=== PATIENT | female | born 1970 | race American Indian/Alaskan Native ===

== ENCOUNTER 2022-04-27 02:15 | Emergency (ER) | payer MEDICARE ==
[2022-04-27] MEDS ORDERED: traMADol 50 MG TAB PO ONE (12:13)
[2022-04-27] MEDS ORDERED: cephALEXin 500 MG CAP PO ONE (12:13)
--- NOTE | 2022-04-27 12:26 | Emergency Department Report ---
ED General Adult HPI - General Chief complaint: Extremity Injury, Lower Stated complaint: LEG INFECTION Time Seen by Provider: 04/27/22 12:13 Source: patient Mode of arrival: Wheelchair Limitations: No Limitations - History of Present Illness Initial comments: Is a 51-year-old female with history of right BKA who presents for pain and sore to right stump. Patient states she wore a stump without compression sleeve causing irritation and small sore. There is no drainage no bleeding no fever or chills. There is mild erythema to 1 x 2 cm site. Patient has follow-up appointment with [facility] tomorrow. States she wanted to make sure to start antibiotics today. Requesting pain medication. Patient rates pain at 4/10. Pain is exacerbated by ambulating and prosthetic irritating her right stump. Pain is relieved by nothing tried. He denies other symptoms. No rigors, no fevers, no chills. - Related Data Previous Rx's Medication Instructions Recorded Last Taken Type cephALEXin [Keflex] 500 mg PO Q8HR 7 Days #21 cap 04/27/22 Unknown Rx traMADoL [Ultram] 50 mg PO Q6HR PRN #12 tablet 04/27/22 Unknown Rx Allergies Allergy/AdvReac Type Severity Reaction Status Date / Time bee venom protein (honey bee) Allergy Itching Verified 04/27/22 02:37 ED Review of Systems ROS: Stated complaint: LEG INFECTION Other details as noted in HPI Constitutional: denies: chills, fever Eyes: denies: eye pain, eye discharge, vision change ENT: denies: ear pain, throat pain Respiratory: denies: cough, shortness of breath, wheezing Cardiovascular: denies: chest pain, palpitations Endocrine: no symptoms reported Gastrointestinal: denies: abdominal pain, nausea, diarrhea Genitourinary: denies: urgency, dysuria, discharge Musculoskeletal: other. denies: back pain, joint swelling, arthralgia Skin: other (1 x 2 cm area of induration erythema no focal abscess no drainage no fluctuance). denies: rash, lesions Neurological: denies: headache, weakness, paresthesias Psychiatric: denies: anxiety, depression Hematological/Lymphatic: as per HPI ED Past Medical Hx - Past Medical History Previous Medical History?: Yes Hx Hypertension: Yes Hx Diabetes: Yes - Surgical History Past Surgical History?: Yes Additional Surgical History: right BKA - Social History Smoking Status: Never Smoker Substance Use Type: None - Medications Home Medications: Home Medications Medication Instructions Recorded Confirmed Last Taken Type cephALEXin [Keflex] 500 mg PO Q8HR 7 Days #21 cap 04/27/22 Unknown Rx traMADoL [Ultram] 50 mg PO Q6HR PRN #12 tablet 04/27/22 Unknown Rx ED Physical Exam - General Limitations: No Limitations General appearance: alert, in no apparent distress - Head Head exam: Present: atraumatic, normocephalic - Eye Eye exam: Present: normal appearance, EOMI Pupils: Present: normal accommodation - ENT ENT exam: Present: mucous membranes moist - Neck Neck exam: Present: normal inspection, full ROM. Absent: tenderness - Respiratory Respiratory exam: Present: normal lung sounds bilaterally, chest wall tenderness. Absent: respiratory distress - Cardiovascular Cardiovascular Exam: Present: regular rate, normal rhythm, normal heart sounds. Absent: systolic murmur, diastolic murmur, rubs, gallop - GI/Abdominal GI/Abdominal exam: Present: soft, normal bowel sounds. Absent: distended, tenderness - Rectal Rectal exam: Present: deferred - Extremities Exam Extremities exam: Present: normal inspection, full ROM - Expanded Lower Extremity Exam Right Lower Leg exam: Present: full ROM, erythema (1 x 2 cm area with erythema tender to touch no crepitus no fluctuance no drainage. Mild skin breakdown.). Absent: swelling, abrasion, laceration, ecchymosis, deformity, crepidus, dislocation - Back Exam Back exam: Present: normal inspection, full ROM. Absent: tenderness - Neurological Exam Neurological exam: Present: alert, oriented X3, CN II-XII intact - Expanded Neurological Exam Expanded Patient oriented to: Present: person, place, time Speech: Present: fluid speech Motor strength exam: RUE: 5, LUE: 5, RLE: 5, LLE: 5 Best Eye Response ([place]): (4) open spontaneously Best Motor Response ([place]): (6) obeys commands Best Verbal Response ([place]): (5) oriented [place] Total: 15 - Psychiatric Psychiatric exam: Present: normal affect, normal mood - Skin Skin exam: Present: warm, dry, normal color, other (2. Centimeter right external wound mild erythema, no drainage no fluctuance no crepitus). Absent: rash ED Course Vital Signs 04/27/22 02:41 Temperature 98.2 F Pulse Rate 105 H Respiratory 18 Rate Blood Pressure 159/90 O2 Sat by Pulse 99 Oximetry ED Medical Decision Making - Medical Decision Making This is a small superficial pressure wound. Plan Keflex, 2 x 2 dressing follow- up with [facility] tomorrow as scheduled. Patient verbalizes agreement and understanding with discharge plan. Patient will be DC'd to home with family member via POV at this time. Critical care attestation.: If time is entered above; I have spent that time in minutes in the direct care of this critically ill patient, excluding procedure time. ED Disposition Clinical Impression: Cellulitis Qualifiers: Site of cellulitis: extremity Site of cellulitis of extremity: lower extremity Laterality: right Qualified Code(s): L03.115 - Cellulitis of right lower limb Disposition: HOME / SELF CARE / HOMELESS Is pt being admited?: No Does the pt Need Aspirin: No Condition: Stable Instructions: Cellulitis, Adult, [id number] Additional Instructions: Take medications as prescribed, follow-up with your doctor in 2 to 3 days. Follow up with the [facility] [place], [place] tomorrow as scheduled, for proper prostetic sleeve for R BKA. Return to emergency should symptoms worsen. Prescriptions: cephALEXin [Keflex] 500 mg PO Q8HR 7 Days #21 cap traMADoL [Ultram] 50 mg PO Q6HR PRN #12 tablet PRN Reason: Pain Forms: Work/School Release Form(ED) Time of Disposition: 12:36
[2022-04-27 13:59] VITALS: BP 114/80
== END 2022-04-27 13:58 | disposition home or self-care (01) ==
LOC: ED 02:15
DX: L03.115 Cellulitis of right lower limb (principal); E11.9 Type 2 diabetes mellitus without complications; I10 Essential (primary) hypertension; Z91.030 Bee allergy status
CPT/HCPCS: 99282